=== PATIENT | female | born 1935 | race Caucasian/White ===

== ENCOUNTER 2021-07-27 08:00 | Outpatient (CLI) | payer MEDICARE, BC | END 2021-07-27 23:59 | disposition home or self-care (01) | LOC: LAB.N 08:00 | PROVIDERS: ATTEND Physician Assistant Medical | DX: R07.0 Pain in throat (principal); Z20.822 Contact with and (suspected) exposure to COVID-19 ==

== ENCOUNTER 2021-07-27 15:58 | Emergency (ER) | payer MEDICARE, BC ==
[2021-07-27 16:09] VITALS: BP 201/88
--- NOTE | 2021-07-27 16:53 | ED Physician Documentation ---
History of Present Illness - Stated complaint Stated Complaint: HIGH BP - Chief complaint Chief Complaint: Heent - History obtained from History obtained from: Patient - History of Present Illness Timing: How many days ago (10) - Additonal information Additional information: 85-year-old female presents to the emergency department with elevated blood pressure after being in her doctor's office today. She states that 10 days ago she developed soreness to her throat feels that she has some lymph glands that are a bit swollen and tender in the submandibular area and she has a constant discomfort from this. This is not made worse by swallowing. The patient has a slight frontal headache which is mild and she does not feel well. She has been tested for Covid and the initial test was negative she is gone in to see her doctor today and when he found that her blood pressure was 205/90 they asked her to come to the emergency department for evaluation for hypertensive urgency.The patient indicates she has not had much to drink today [place] She denies any excessive salt load or withdrawal from alcohol. Review of Systems Constitutional: denies: Fever Eyes: denies: Decreased vision Ears: denies: Ear pain Nose: reports: Congestion Throat: reports: Sore throat Cardiac: denies: Chest pain / pressure, Palpitations Respiratory: denies: Dyspnea GI: denies: Abdominal Pain, Nausea, Vomiting, Constipation, Diarrhea : denies: Dysuria, Frequency Skin: denies: Rash Musculoskeletal: reports: Neck pain. denies: Back pain, Extremity pain Neurologic: reports: Headache. denies: Generalized weakness, Focal weakness, Numbness, Head injury, LOC PD PAST MEDICAL HISTORY - Present Medications Home Medications: Ambulatory Orders Medication Instructions Recorded Confirmed Levothyroxine Sodium [Synthroid] 88 mcg PO DAILY #30 tablet 07/27/21 lisinopriL [Zestril] 5 mg PO DAILY #30 tablet 07/27/21 - Allergies Allergies/Adverse Reactions: Allergies Allergy/AdvReac Type Severity Reaction Status Date / Time No Known Drug Allergies Allergy Verified 07/27/21 16:08 PD ED PE NORMAL - Vitals Vital signs reviewed: Yes (hypertensive ) - General General: Alert and oriented X 3, No acute distress, Well developed/nourished - HEENT HEENT: Atraumatic, PERRL, EOMI - Neck Neck: Supple, no meningeal sign, No bony TTP - Cardiac Cardiac: RRR, No murmur - Respiratory Respiratory: No respiratory distress, Clear bilaterally - Abdomen Abdomen: Normal bowel sounds, Soft, Non tender, Non distended, No organomegaly, Other (scaphoid abdomen) - Back Back: No CVA TTP, No spinal TTP - Derm Derm: Normal color, Warm and dry, No rash - Extremities Extremities: No deformity, No edema - Neuro Neuro: Alert and oriented X 3, medical review coordinator 2-12 intact, No motor deficit, No sensory deficit, Normal speech Eye Opening: Spontaneous Motor: Obeys Commands Verbal: Oriented GCS Score: 15 - Psych Psych: Normal mood, Normal affect Results - Vitals Vitals: Vital Signs - 24 hr 07/27/21 16:00 Temperature 36.6 C Heart Rate 89 Respiratory 16 Rate Blood Pressure 201/88 H O2 Saturation 100 - EKG (time done) 1647 Rate: Rate (enter#) (79) Rhythm: LAE Intervals: Prolonged NH QRS: LVH Compare to prior EKG: Old EKG unavailable Computer interpretation: Agree with computer - Labs Labs: Laboratory Tests 07/27/21 07/27/21 07/27/21 16:40 16:50 16:50 WBC 5.1 RBC 4.26 Hgb 13.5 Hct 40.7 MCV 95.5 MCH 31.7 H MCHC 33.2 RDW 12.7 Plt Count 208 MPV 9.1 Neut # (Auto) 3.2 Lymph # (Auto) 1.2 L Norman # (Auto) 0.5 Eos # (Auto) 0.1 Baso # (Auto) 0.0 Absolute Nucleated RBC 0.00 Nucleated RBC % 0.0 Sodium 131 L Potassium 3.7 Chloride 92 L Carbon Dioxide 29 Anion Gap 10.0 BUN 10 Creatinine 0.5 Estimated GFR (MDRD) 118 Glucose 107 H Calcium 9.1 Total Bilirubin 0.9 AST 21 ALT 19 Alkaline Phosphatase 50 Troponin I High Sens Total Protein 7.3 Albumin 4.4 Globulin 2.9 Albumin/Globulin Ratio 1.5 Lipase 29 TSH Free T4 Thyroxine (T4) Free T3 pg/mL Nasal Adenovirus (PCR) NOT DETECTED Nasal B. parapertussis DNA (PCR) NOT DETECTED Nasal Coronavir 229E PCR NOT DETECTED Nasal Coronavir HKU1 PCR NOT DETECTED Nasal Coronavir NL63 PCR NOT DETECTED Nasal Coronavir OC43 PCR NOT DETECTED Nasal Enterovir/Rhinovir PCR NOT DETECTED Nasal Influenza B PCR NOT DETECTED Nasal Influenza A PCR NOT DETECTED Nasal Parainfluen 1 PCR NOT DETECTED Nasal Parainfluen 2 PCR NOT DETECTED Nasal Parainfluen 3 PCR NOT DETECTED Nasal Parainfluen 4 PCR NOT DETECTED Nasal RSV (PCR) NOT DETECTED Nasal B.pertussis DNA PCR NOT DETECTED Nasal C.pneumoniae (PCR) NOT DETECTED Gold Human Metapneumo PCR NOT DETECTED Nasal M.pneumoniae (PCR) NOT DETECTED Nasal SARS-CoV-2 (PCR) NOT DETECTED 07/27/21 07/27/21 07/27/21 16:50 16:50 16:50 WBC RBC Hgb Hct MCV MCH MCHC RDW Plt Count MPV Neut # (Auto) Lymph # (Auto) Norman # (Auto) Eos # (Auto) Baso # (Auto) Absolute Nucleated RBC Nucleated RBC % Sodium Potassium Chloride Carbon Dioxide Anion Gap BUN Creatinine Estimated GFR (MDRD) Glucose Calcium Total Bilirubin AST ALT Alkaline Phosphatase Troponin I High Sens 5.6 Total Protein Albumin Globulin Albumin/Globulin Ratio Lipase TSH 6.51 H Free T4 0.72 Thyroxine (T4) 6.01 L Free T3 pg/mL Nasal Adenovirus (PCR) Nasal B. parapertussis DNA (PCR) Nasal Coronavir 229E PCR Nasal Coronavir HKU1 PCR Nasal Coronavir NL63 PCR Nasal Coronavir OC43 PCR Nasal Enterovir/Rhinovir PCR Nasal Influenza B PCR Nasal Influenza A PCR Nasal Parainfluen 1 PCR Nasal Parainfluen 2 PCR Nasal Parainfluen 3 PCR Nasal Parainfluen 4 PCR Nasal RSV (PCR) Nasal B.pertussis DNA PCR Nasal C.pneumoniae (PCR) Gold Human Metapneumo PCR Nasal M.pneumoniae (PCR) Nasal SARS-CoV-2 (PCR) 07/27/21 16:50 WBC RBC Hgb Hct MCV MCH MCHC RDW Plt Count MPV Neut # (Auto) Lymph # (Auto) Norman # (Auto) Eos # (Auto) Baso # (Auto) Absolute Nucleated RBC Nucleated RBC % Sodium Potassium Chloride Carbon Dioxide Anion Gap BUN Creatinine Estimated GFR (MDRD) Glucose Calcium Total Bilirubin AST ALT Alkaline Phosphatase Troponin I High Sens Total Protein Albumin Globulin Albumin/Globulin Ratio Lipase TSH Free T4 Thyroxine (T4) Free T3 pg/mL 2.83 Nasal Adenovirus (PCR) Nasal B. parapertussis DNA (PCR) Nasal Coronavir 229E PCR Nasal Coronavir HKU1 PCR Nasal Coronavir NL63 PCR Nasal Coronavir OC43 PCR Nasal Enterovir/Rhinovir PCR Nasal Influenza B PCR Nasal Influenza A PCR Nasal Parainfluen 1 PCR Nasal Parainfluen 2 PCR Nasal Parainfluen 3 PCR Nasal Parainfluen 4 PCR Nasal RSV (PCR) Nasal B.pertussis DNA PCR Nasal C.pneumoniae (PCR) Gold Human Metapneumo PCR Nasal M.pneumoniae (PCR) Nasal SARS-CoV-2 (PCR) Procedures - IVC sono (time) 1640 Bedside IVC sono: IVC measures (cm) (2.02), Euvolemia PD MEDICAL DECISION MAKING - ED course Complexity details: reviewed results, re-evaluated patient, considered differential, d/w patient ED course: 85-year-old female who was sent to the emergency department for evaluation of hypertensive urgency has blood pressures of 210/110 and she is started on lisinopril here in the emergency department. Evaluation of the patient's blood counts and kidney liver function are normal. The patient has complained of a week long sore throat and she does not have pain with swallowing but does have a constant pain to her neck. She does have a palpable thyroid. We checked her TSH which was elevated and her T4 was low. The patient has felt that she might have thyroid dysfunction for quite some time. We will start the patient on Synthroid at 88 mcg. Corresponding to 1.7 mcg/kg. I have asked patient to follow-up with her primary care doctor for reevaluation within this month. She will be checking her blood pressure more frequently at home. Departure - Departure Disposition: 01 Home, Self Care Clinical Impression: Hypertension Qualifiers: Hypertension type: unspecified Qualified Code(s): I10 - Essential (primary) hypertension Hypothyroidism Qualifiers: Hypothyroidism type: unspecified Qualified Code(s): E03.9 - Hypothyroidism, unspecified Condition: Stable Instructions: ED Hypertension New Begin Tx, ED Hypothyroidism Follow-Up: Paulo Mckinney MD [Primary Care Provider] - Prescriptions: Levothyroxine Sodium [Synthroid] 88 mcg PO DAILY #30 tablet lisinopriL [Zestril] 5 mg PO DAILY #30 tablet Comments: Today it does appear that your blood pressure is elevated and it is elevated in a range that should require treatment. We will start you on some lisinopril and expect your blood pressure to lower slowly over the next week. Follow-up with your primary care doctor for reevaluation. In addition today we found that your thyroid function shows you have low thyroid. We are starting you on a dose of Synthroid that should replace this. A follow-up measurement of your T4 is recommended in the next 3 to 4 weeks. All 23 viruses including COVID 19 were negative on your nasal swab. You can access your record through the hospital portal [email or web address] click on the [facility] [employer] tab and sign up for the patient portal.
[2021-07-27 16:55] LABS: BASOPHILS % (AUTO) 0.6 %; EOSINOPHILS # (AUTO) 0.1 10^3/uL (0.0-0.7); HCT - HEMATOCRIT 40.7 % (37.0-47.0); HGB - HEMOGLOBIN 13.5 g/dL (12.0-16.0); LYMPHOCYTES # (AUTO) 1.2 10^3/uL (1.5-3.5); LYMPHOCYTES % (AUTO) 24.3 %; MEAN CORPUSCULAR HEMOGLOBIN 31.7 pg (27.0-31.0); MEAN CORPUSCULAR HGB CONC 33.2 g/dL (32.0-36.0); MEAN CORPUSCULAR VOLUME 95.5 fL (81.0-99.0); MEAN PLATELET VOLUME 9.1 fL (7.9-10.8); MONOCYTES # (AUTO) 0.5 10^3/uL (0.0-1.0); MONOCYTES % (AUTO) 9.6 %; NEUTROPHILS # (AUTO) 3.2 10^3/uL (1.5-6.6); NEUTROPHILS % (AUTO) 63.3 %; PLT - PLATELET COUNT 208 10^3/uL (130-450); RED BLOOD COUNT 4.26 10^6/uL (4.20-5.40); RED CELL DISTRIBUTION WIDTH 12.7 % (12.0-15.0); WHITE BLOOD COUNT 5.1 x10^3/uL (4.8-10.8)
[2021-07-27 17:10] LABS: ALBUMIN 4.4 g/dL (3.2-5.5); ALBUMIN/GLOBULIN RATIO 1.5 (1.0-2.2); BILIRUBIN,TOTAL 0.9 mg/dL (0.2-1.0); CALCIUM 9.1 mg/dL (8.5-10.3); CREATININE 0.5 mg/dL (0.4-1.0); POTASSIUM 3.7 mmol/L (3.5-5.0); TOTAL PROTEIN 7.3 g/dL (6.7-8.2)
[2021-07-27] MEDS ORDERED: lisinopriL 5 MG TABLET PO STA (17:42)
[2021-07-27 17:44] LABS: B. PARAPERTUSSIS- RESP PCR PAN NOT DETECTED; B. PERTUSSIS- RESP PCR PANEL NOT DETECTED; C. PNEUMONIAE- RESP PCR PANEL NOT DETECTED; CORONAVIRUS 229E-RESP PCR NOT DETECTED; CORONAVIRUS HKU1-RESP PCR NOT DETECTED; CORONAVIRUS NL63-RESP PCR NOT DETECTED; CORONAVIRUS OC43-RESP PCR NOT DETECTED; HUMAN METAPNEUMOVIRUS NOT DETECTED; INFLUENZA A- RESP PCR PANEL NOT DETECTED; INFLUENZA B - RESP PCR PANEL NOT DETECTED; M. PNEUMONIAE- RESP PCR PANEL NOT DETECTED; PARAINFLUENZA VIRUS 1 NOT DETECTED; PARAINFLUENZA VIRUS 2 NOT DETECTED; PARAINFLUENZA VIRUS 3 NOT DETECTED; PARAINFLUENZA VIRUS 4 NOT DETECTED; RHINOVIRUS/ENTEROVIRUS NOT DETECTED; RSV- RESP PCR PANEL NOT DETECTED; SARS-CoV-2 -RESP PCR PANEL NOT DETECTED
[2021-07-27 18:10] LABS: T4 (THYROXINE) 6.01 ug/dL (6.09-12.23)
[2021-07-27 18:17] LABS: FREE T4 (FREE THYROXINE) 0.72 ng/dL (0.58-1.64)
== END 2021-07-27 18:38 | disposition home or self-care (01) ==
LOC: ED 15:58
DX: I10 Essential (primary) hypertension (principal); E03.9 Hypothyroidism, unspecified; Z20.822 Contact with and (suspected) exposure to COVID-19; R07.0 Pain in throat
CPT/HCPCS: 36415; 80053; 83690; 84436; 84439; 84443; 84480; 84481; 84484; 85025; 87631; 93005; 99283; 99284; A9270; U0004; 0202U